=== PATIENT | female | born 1995 | race Hispanic/Latino ===

== ENCOUNTER 2019-02-06 03:09 | Emergency (ER) | payer MEDICAID ==
[2019-02-06 03:24] VITALS: BP 121/78; PULSE 87; RESP 17; TEMP 98.4; O2SAT 97
[2019-02-06] MEDS ORDERED: Tdap Vaccine 0.5 ml Vial (10-64 yrs) IM ONE ×2 (03:32→04:00)
--- NOTE | 2019-02-06 03:43 | ED PDOC ---
HPI: General Adult Time Seen by Provider: 02/06/19 03:41 Chief Complaint (Nursing): Abnormal Skin Integrity Chief Complaint (Provider): LEFT HAND LACERATION History Per: Patient (23 Y/O FEMALE HERE WITH LEFT HAND LACERATION WHILE CUTTING GARLIC TODAY. UNSURE OF TETANUS STATUS. IS RIGHT HAND DOMINANT.) Past Medical History Reviewed: Historical Data, Nursing Documentation, Vital Signs Vital Signs: Last Vital Signs Temp 98.4 F 02/06/19 03:17 Pulse 87 02/06/19 03:17 Resp 17 02/06/19 03:17 BP 121/78 02/06/19 03:17 Pulse Ox 97 02/06/19 03:17 Primary Care Provider: Teodoro Lazar - Family History Family History: States: No Known Family Hx - Allergies Allergies/Adverse Reactions: Allergies Allergy/AdvReac Type Severity Reaction Status Date / Time No Known Allergies Allergy Verified 02/06/19 03:23 Review of Systems ROS Statement: Except As Marked, All Systems Reviewed And Found Negative Physical Exam - Reviewed Nursing Documentation Reviewed: Yes Vital Signs Reviewed: Yes - Physical Exam Appears: Positive for: Well, Non-toxic, No Acute Distress Head Exam: Positive for: ATRAUMATIC, NORMAL INSPECTION, NORMOCEPHALIC Skin: Positive for: Normal Color, Warm, DRY Eye Exam: Positive for: EOMI, Normal appearance, PERRL ENT: Positive for: Normal ENT Inspection Neck: Positive for: Normal, Painless ROM Cardiovascular/Chest: Positive for: Regular Rate, Rhythm Respiratory: Positive for: CNT, Normal Breath Sounds Gastrointestinal/Abdominal: Positive for: Normal Exam, Soft Back: Positive for: Normal Inspection Extremity: Positive for: Normal ROM, Other (6MM LACERATION DISTAL TIP OF THIRD DIGIT LEFT HAND. ABLE TO FLEX/EXTEND FINGER DIP/PIP WITHOUT DIFFICULTY) Neurological/Psych: Positive for: Awake, Alert, Normal Tone - ECG O2 Sat by Pulse Oximetry: 97 - Progress ED Course And Treament: TDAP 0.5ML IM X 1 DOSE Disposition - Clinical Impression Clinical Impression: Laceration - Patient ED Disposition Is Patient to be Admitted: No - Disposition Disposition: Routine/Home Disposition Time: 03:58 Condition: FAIR Additional Instructions: FOLLOW UP WITH ED/PMD/URGENT CARE IN 7 DAYS FOR REMOVAL OF SUTURES. Instructions: Laceration Repair With Stitches (DC) Forms: [facility] ED School/Work Excuse Procedure: Wound Repair - Time Performed Time Performed: 03:44 - Time Out Time Out: Site verified - Consent Obtained Consent obtained: Verbal - Performed by Performed by: Mid-level Provider - Indications Indication(s):: Laceration - Location Location:: Left, Hand Shape:: Curvilinear Dimensions Length cm: 6MM FLAP LACERATION Depth:: Epidermis - Anesthetic Technique Anesthetic Technique: Regional block (LIDOCAINE 1% 3 ML SC DIGITAL BLOCK) Local/Regional Anesthetic:: Lidocaine 1% - Irrigated Irrigated with ml of normal saline: 150ML - Complexity Complexity:: Simple (one layer) - Wound repair method Sutures:: # (two), Size (5-0), Type (PROLENE), Technique (INTERRUPTED) - Muscle repiar layer closed with Muscle repair layer closed with:: Abx ointment applied, Tetanus ordered
== END 2019-02-06 04:12 | disposition home or self-care (01) ==
LOC: H.ER 03:09
DX: S61.412A Laceration without foreign body of left hand, initial encounter (principal); W45.8XXA Other foreign body or object entering through skin, initial encounter; Y93.G1 Activity, food preparation and clean up; Z23 Encounter for immunization